=== PATIENT | male | born 1975 | race Two or more races ===

== ENCOUNTER 2018-03-16 07:27 | Emergency (ER) | payer OTHER ==
[2018-03-16] MEDS: HYDROcodone/APAP 5/325MG 1 TAB TABLET PO (08:45)
[2018-03-16] MEDS: LIDOCAINE 2% 20 ML VIAL. IJ (08:45)
[2018-03-16] MEDS: DIPHTH,PERTUSS(ACELL),TET TOX 0.5 ML DISP.SYRIN. VAX IM (08:46)
[2018-03-16] MEDS: IV NORMAL SALINE 1000ML BAG 1,000 ML IV (10:07)
== END 2018-03-16 11:50 | disposition home or self-care (01) ==
LOC: ER 07:27
DX: S61.210A Laceration without foreign body of right index finger without damage to nail, initial encounter (principal); Y28.8XXA Contact with other sharp object, undetermined intent, initial encounter; Y93.89 Activity, other specified; Y99.8 Other external cause status; Y92.89 Other specified places as the place of occurrence of the external cause
CPT/HCPCS: 12001; 90471; 90715; 96360; 99284-25; J2001; J7030